=== PATIENT | female | born 1975 | race Caucasian/White ===

== ENCOUNTER 2017-02-27 23:58 | Emergency (ER) | payer BC ==
[~2017-02-27 23:58] MED LIST: ABILIFY5 PO; ALEVE220 MG PO; BENTYL10 PO; CLIN150 PO; EXCEDRINTB PO; FL250 PO; LAMICTAL10 PO; LAMICTAL200 MG PO; LAMICTAL25 PO; MULTIPLE VIT PO; MULTIVITAMI1 PO; NEXIUM40 PO; VALTREX1 GM PO; X25 PO; YAZ1 TAB PO; ZANTAC150 MG PO; ZOFRAN4 PO
[2017-02-28 03:55] LABS: BASOPHILS 0.2 %; BASOPHILS ABSOLUTE 0.02 10/3/uL (0.0-0.16); EOSINOPHILS 0.8 %; EOSINOPHILS ABSOLUTE 0.09 10/3/uL (0.0-0.53); HEMOGLOBIN 13.9 g/dL (12.0-16.0); IMMATURE GRANULOCYTES 0.2 %; IMMATURE GRANULOCYTES ABSOLUTE 0.02 10/3/uL (0.0-0.11); LYMPHOCYTES 13.6 %; LYMPHOCYTES ABSOLUTE 1.54 10/3/uL (0.67-4.30); MEAN CORPUS HGB CONC 34.8 g/dL (32.0-36.0); MEAN CORPUSCULAR HEMOGLOB 29.6 pg (26.0-34.0); MEAN PLATELET VOLUME 10.9 fL (9.2-13.0); MONOCYTES 7.2 %; MONOCYTES ABSOLUTE 0.81 10/3/uL (0.21-1.20); NEUTROPHILS ABSOLUTE 8.82 10/3/uL (2.02-8.40); PLATELET COUNT 255 10/3/uL (150-400); RBC DISTRIBUTION WIDTH 12.6 % (12.0-16.0)
[2017-02-28 03:56] LABS: HEMATOCRIT 39.9 % (36.0-48.0); MANUAL DIFF NO %; MEAN CORPUSCULAR VOLUME 84.9 fL (80-100); WHITE BLOOD CELLS 11.3 10/3/uL (4.5-10.5)
[2017-02-28 04:09] LABS: ASCORBIC ACID (UR NOT ORDER) 40 (NEG); BILIRUBIN, URINE NEGATIVE (NEG); ER URINALYSIS TAT 0 Hrs 00 Mins; KETONE, URINE TRACE MG/DL (NEG); LEUKOCYTE ESTERASE(NOT OR NEG (NEG); NITRITE (URINE) NEG (NEG); WBC (NOT ORDERED) (RFLEX) 1 (0-5)
[2017-02-28 04:13] LABS: CALCIUM, SERUM 8.7 MG/DL (8.5-10.4); CHLORIDE, SERUM 109 MMOL/L (96-112); CO2 (CARBON DIOXIDE) 25 MMOL/L (24-34); CREATININE 0.81 MG/DL (0.55-1.02); GFR AFRICAN AMERICAN 105 ML/MIN (>=60); GFR NON AFRICAN AMERICAN 91 ML/MIN (>=60); GLUCOSE, SERUM 107 MG/DL (60-99); SGPT(ALT) 180 U/L (5-65); SODIUM, SERUM 141 MMOL/L (135-148)
[2017-02-28 04:15] LABS: ALKALINE PHOSPHATASE 120 U/L (45-117); BUN (BLOOD UREA NITROGEN) 15 MG/DL (6-23); POTASSIUM, SERUM 4.5 MMOL/L (3.5-5.3); SGOT(AST) 320 U/L (5-40); TOTAL BILIRUBIN 1.1 MG/DL (0-1.2)
== END 2017-02-28 06:07 | disposition home or self-care (01) ==
LOC: ER 23:58
PROVIDERS: Emergency Medicine
DX: K85.90 Acute pancreatitis without necrosis or infection, unspecified (principal); Z88.5 Allergy status to narcotic agent; Z88.8 Allergy status to other drugs, medicaments and biological substances; Z79.899 Other long term (current) drug therapy
CPT/HCPCS: 74176; 80053; 81001; 83690; 84703; 85025; 96374; 99284; J2405

== ENCOUNTER 2017-03-05 19:41 | Emergency (ER) | payer BC ==
[2017-03-05 23:16] LABS: BASOPHILS 0.1 %; BASOPHILS ABSOLUTE 0.01 10/3/uL (0.0-0.16); EOSINOPHILS 1.2 %; EOSINOPHILS ABSOLUTE 0.09 10/3/uL (0.0-0.53); HEMATOCRIT 40.5 % (36.0-48.0); HEMOGLOBIN 14.1 g/dL (12.0-16.0); IMMATURE GRANULOCYTES 0.3 %; IMMATURE GRANULOCYTES ABSOLUTE 0.02 10/3/uL (0.0-0.11); LYMPHOCYTES ABSOLUTE 2.22 10/3/uL (0.67-4.30); MEAN CORPUS HGB CONC 34.8 g/dL (32.0-36.0); MEAN CORPUSCULAR HEMOGLOB 29.7 pg (26.0-34.0); MEAN CORPUSCULAR VOLUME 85.3 fL (80-100); MEAN PLATELET VOLUME 11.1 fL (9.2-13.0); MONOCYTES 7.7 %; MONOCYTES ABSOLUTE 0.57 10/3/uL (0.21-1.20); NEUTROPHILS 60.7 %; PLATELET COUNT 247 10/3/uL (150-400); RBC DISTRIBUTION WIDTH 12.6 % (12.0-16.0); RED CELL COUNT 4.75 10/6/uL (4.0-5.6); WHITE BLOOD CELLS 7.4 10/3/uL (4.5-10.5)
[2017-03-05 23:19] LABS: MANUAL DIFF NO %
[2017-03-05 23:34] LABS: ALBUMIN 3.9 G/DL (3.5-5.0); BUN (BLOOD UREA NITROGEN) 15 MG/DL (6-23); CALCIUM, SERUM 9.4 MG/DL (8.5-10.4); CHLORIDE, SERUM 104 MMOL/L (96-112); CO2 (CARBON DIOXIDE) 26 MMOL/L (24-34); CREATININE 0.86 MG/DL (0.55-1.02); GFR AFRICAN AMERICAN 98 ML/MIN (>=60); GFR NON AFRICAN AMERICAN 85 ML/MIN (>=60); GLOBULIN 4.1 G/DL (2.5-4.1); GLUCOSE, SERUM 91 MG/DL (60-99); SGPT(ALT) 185 U/L (5-65); SODIUM, SERUM 135 MMOL/L (135-148); TOTAL BILIRUBIN 0.9 MG/DL (0-1.2)
[2017-03-05 23:40] LABS: ALKALINE PHOSPHATASE 141 U/L (45-117); POTASSIUM, SERUM 5.5 MMOL/L (3.5-5.3); SGOT(AST) 67 U/L (5-40)
[2017-03-05 23:41] LABS: ASCORBIC ACID (UR NOT ORDER) 20 (NEG); BILIRUBIN, URINE NEGATIVE (NEG); ER URINALYSIS TAT 0 Hrs 00 Mins; KETONE, URINE 20 MG/DL (NEG); LEUKOCYTE ESTERASE(NOT OR SMALL (NEG); NITRITE (URINE) NEG (NEG); WBC (NOT ORDERED) (RFLEX) 3 (0-5)
[2017-03-06 00:44] LABS: POTASSIUM, SERUM 3.9 MMOL/L (3.5-5.3)
[2017-03-06 01:20] LABS: ALBUMIN 3.6 G/DL (3.5-5.0); DIRECT BILIRUBIN 0.2 MG/DL (0.0-0.4); INDIRECT BILIRUBIN(NOT ORDER) 0.5 MG/DL (0.1-0.9); TOTAL BILIRUBIN 0.7 MG/DL (0-1.2); TOTAL PROTEIN 6.9 G/DL (6.0-8.5)
== END 2017-03-06 03:27 | disposition home or self-care (01) ==
LOC: ER 19:41
PROVIDERS: Emergency Medicine; Nurse Practitioner
DX: K85.90 Acute pancreatitis without necrosis or infection, unspecified (principal); J45.909 Unspecified asthma, uncomplicated; E11.9 Type 2 diabetes mellitus without complications; Z88.5 Allergy status to narcotic agent; Z88.8 Allergy status to other drugs, medicaments and biological substances; Z79.899 Other long term (current) drug therapy
CPT/HCPCS: 74176; 80053; 80076; 81001; 83690; 84132; 84703; 85025; 87086; 96374; 99284; J2405

== ENCOUNTER 2017-03-18 14:55 | Inpatient (IN) | payer BC ==
--- NOTE | ~2017-03-18 | HP ---
History And Physical [place] [id number] [facility] [place]. [address] NAME: UMU GALLARDO : 79 STATUS : ADM IN PAT#: [id number] AGE: 42 ADM/REG DATE : 03/18/17 MR#: [id number] REPORT SERV DATE: 03/19/17 DICTATED BY: ATA GILLETTE DATE: 03/19/17 REPORT STATUS : Draft TRANSCRIBED BY: MODSoco DATE: 03/19/17 DATE OF ADMISSION: 03/18/2017 CHIEF COMPLAINT: Three weeks of decreased p.o. intake, difficulty with p.o. intake with abdominal pain, recent pancreatitis. HISTORY OF PRESENT ILLNESS: The patient is a 42-year-old female with past medical history of familial adenomatous polyposis with subsequent total colectomy who presents after having recent diagnosis of pancreatitis with a lipase in the 900s was treated supportively, however, since this diagnosis the patient has had decreased ability to advance diet. Has had three visits to the patient's PCP Dr. Cruz, and has even been evaluated at [place] with her GI doctor in which they even performed MRCP for pancreatitis symptoms about 1 week ago which the patient reports was unremarkable. Today, when she comes to her PCP Dr. Christiano Cruz, the patient was still unable to tolerate p.o., had been nauseated, mild vomiting, has been on enzyme replacement with minimal improvement, has had green liquid in ostomy. No fevers or chills. Pain on initial presentation was so severe that it woke her from sleep, in mid epigastric, has been on and off pain medication. The patient reports that only relieving symptoms was lying on the floor. Symptoms are intermittent, worsened with p.o. intake and also associated with mild vomiting nonradiating, no chest pain. No rashes, no headaches, no double vision. Additional 10-point review of systems negative except for that noted in the HPI. PAST MEDICAL HISTORY: Migraines, prediabetes, fatty liver, familial adenomatous polyposis, lumbar fusion with anterior approach. SURGICAL HISTORY: Total colectomy and lumbar spinal fusion with anterior approach, cholecystectomy. SOCIAL HISTORY: No smoking, alcohol, or illicits. 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 FAMILY HISTORY: Of stomach cancers in paternal aunts. Mother with diabetes and heart disease. ALLERGIES: DILAUDID, TORADOL, AND ACIPHEX. HOME MEDICATIONS: Enzymes, Zyrtec, and multivitamin. REVIEW OF SYSTEMS: Again review of systems, ten-point negative except for that noted in the HPI. LABS: Still currently pending. PHYSICAL EXAMINATION: VITAL SIGNS: Blood pressure 156/90, O2 sats 98%, temperature 97.8, pulse 80, weight 88.54 History And Physical [address] [address] NAME: UMU GALLARDO : 79 STATUS : ADM IN [facility]#: [id number] AGE: 42 ADM/REG DATE : 03/18/17 MR#: [id number] REPORT SERV DATE: 03/19/17 DICTATED BY: ATA GILLETTE DATE: 03/19/17 REPORT STATUS : Draft TRANSCRIBED BY: ARUN DATE: 03/19/17 kg. GENERAL: No acute distress. Resting, calm pleasant. HEAD: Normocephalic, atraumatic. EYES: No scleral icterus. EOMI. ENT: Nares patent. Tongue midline. Moist mucous membranes. CHEST: Equal chest expansion. RESPIRATORY: Clear to auscultation. No wheezes. CV: Regular rate. No rubs or gallops. ABDOMEN: Tender to palpation on left side with left-sided CVA tenderness, mild. Negative rebound. Right-sided ostomy. MUSCULOSKELETAL: Moves all extremities x4. No abdominal pain with leg raise. SKIN: Warm and dry. NEURO: Alert and oriented. Moves all extremities x4. Symmetrical strength in hands and legs bilaterally. PSYCH: Appropriate mood and affect. SKIN: Warm and dry. ASSESSMENT AND PLAN: 1. Nausea and vomiting with abdominal pain. 2. Recent pancreatitis. 3. Ostomy. 4. Prediabetes. 5. Familial adenomatous polyposis with colectomy. PLAN: 1. For abdominal pain, nausea, vomiting; supportive treatment. The patient has had multiple imaging with MRCP, however, looking at the patient's recent history of three weeks ago having pancreatitis, lipase at that time was going up to 900. This could be secondary to acute nausea vomiting and isolated irritation as the patient appeared to appears to have improved from that. Repeat lipase numbers approximately one week ago was within normal range but symptoms were still currently present at that time. Pancreatitis although is on differential, we will check lipase, CT with and without contrast. Of note, the patient does have mild left-sided CVA tenderness, that may be more consistent with stone formation. Additional differential could be symptomatic ulcer. We will first do initial screen for pancreatitis. Additional abdominal workup. Obtain records from [place] for MRCP [place], the patient has seen [facility]COSTA in the past, may require GI evaluation if current workup remains negative, but still unable to tolerate p.o. 2. For recent pancreatitis, initiated IV fluids until lipase and CT obtained and pain control. 3. Prediabetes, monitor. 4. Elevated LFTs with fatty liver history. Monitor CMP. Elevated LFTs are from patient's reports. She has history of fatty liver, was privately seeing Dr. Gregorio Cortez but has not been required to see. Again, we will monitoring specialist CMP. All questions answered with the patient and family at bedside. History And Physical [address] [address] NAME: UMU GALLARDO : 79 STATUS : ADM IN PAT#: [id number] AGE: 42 ADM/REG DATE : 03/18/17 MR#: [id number] REPORT SERV DATE: 03/19/17 DICTATED BY: ATA GILLETTE DATE: 03/19/17 REPORT STATUS : Draft TRANSCRIBED BY: ARUN DATE: 03/19/17 DDN/ARUN Ata Gillette MD / [id number] CC: Azam Hernandez Jr, MD William H Smith, M.D.
--- NOTE | ~2017-03-18 | CN ---
Consultation Report [facility] [address] [place]. [address] NAME: UMU GALLARDO : 79 STATUS : ADM IN PAT#: [id number] AGE: 42 ADM/REG DATE : 03/18/17 MR#: [id number] REPORT SERV DATE: 03/20/17 DICTATED BY: MEGA FUNEZ DATE: 03/20/17 REPORT STATUS : Draft TRANSCRIBED BY: ARUN DATE: 03/20/17 DATE OF CONSULTATION: 03/20/2017 REASON FOR CONSULTATION: Abdominal pain. HISTORY OF PRESENT ILLNESS: The patient is a 42-year-old female, who presents with approximately 3-week history of abdominal pain initially over the epigastrium, but now over the left upper quadrant. The pain is described as a knot. The pain tends to worsen with p.o. intake. She maintains liquids and she seems to do better, but still had discomfort. The pain began acutely three weeks ago and therefore underwent a CT scan at that time without contrast, that was unremarkable. She was noted to have mildly elevated lipase to 900s, so was given a presumptive diagnosis of pancreatitis at that point and was treated supportively; however, her symptoms have persisted. In the course of last three weeks, she has had three CT scans, MRI with MRCP, and an upper endoscopy, all of which have been unremarkable. She has a known history of FAP and has undergone a total colectomy. She follows up at [facility]. She had an upper endoscopy done four weeks ago by Dr. Fajardo at [facility] for routine surveillance. At which point, no ulcers or mucosal abnormalities other than adenomatous duodenal polyps were found. She also had an MRI with MRCP performed at that time, which was unremarkable. With the onset of pain after p.o. intake, she will have some mild nausea. She denies any fevers or chills. She denies any diarrhea. PAST MEDICAL HISTORY: Significant for FAP, status post total colectomy, history of migraines, fatty liver, pre-diabetes, back pain. PAST SURGICAL HISTORY: Total colectomy with ileostomy, lumbar spinal fusion, cholecystectomy. HOME MEDICATIONS: Reviewed. ALLERGIES: DILAUDID, TORADOL, ACIPHEX. FAMILY HISTORY: Paternal aunts with gastric cancers. REVIEW OF SYSTEMS: As in HPI, otherwise currently negative for fevers or myalgias. PHYSICAL EXAMINATION: VITAL SIGNS: Stable. Afebrile. GENERAL: Well-developed, well-nourished female, currently in no acute distress. HEENT: Atraumatic, normocephalic. Anicteric sclerae. NECK: Supple. No lymphadenopathy or JVD. CARDIOVASCULAR: Regular rate and rhythm. No murmurs, rubs, gallops. LUNGS: Clear to auscultation bilaterally. ABDOMEN: Soft. There is pinpoint tenderness to palpation in the left upper quadrant below the costal margin. Pain is present with and without abdominal wall flexion, but much worse Consultation Report [place] [id number] [place]. [address] NAME: UMU GALLARDO : 79 STATUS : ADM IN PAT#: [id number] AGE: 42 ADM/REG DATE : 03/18/17 MR#: [id number] REPORT SERV DATE: 03/20/17 DICTATED BY: MEGA FUNEZ DATE: 03/20/17 REPORT STATUS : Draft TRANSCRIBED BY: ARUN DATE: 03/20/17 with during flexion. Positive bowel sounds. EXTREMITIES: No cyanosis, clubbing, or edema. SKIN: Warm and dry. NEURO: Alert and oriented x3. LABORATORY WORK: Normal CBC. Normal CMP. Normal pancreatic enzymes. IMPRESSION/PLAN: Left upper quadrant pain. She has undergone extensive imaging as well as upper endoscopy within last four weeks that had all been unremarkable. Based on history, prior data, and today's exam, I feel this is musculoskeletal in nature. 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 This could be possibility as to what she may have had the abdominal injury. As such, we will treat with anti-inflammatories, muscle relaxers, warm, heat, and frequent abdominal stretching. SB/MODL Mega Funez M.D. / [id number] CC: MD Azam Camacho M.D.
--- NOTE | ~2017-03-18 | DS ---
Discharge Summary [place] [id number] [place]. [address] NAME: UMU GALLARDO : 79 STATUS : DIS IN PAT#: [id number] AGE: 42 ADM/REG DATE : 03/18/17 MR#: [id number] REPORT SERV DATE: 03/25/17 DICTATED BY: ATA GILLETTE DATE: 03/25/17 REPORT STATUS : Draft TRANSCRIBED BY: MODSoco DATE: 03/25/17 ADMISSION DATE: 03/18/2017 DISCHARGE DATE: 03/21/2017 DISCHARGE DIAGNOSES: 1. Abdominal pain, ruled out acute pancreatitis, thought musculoskeletal. 2. Urinary tract infection, present on arrival. 3. Extraperitoneal fluid on imaging. 4. Prediabetes. 5. Elevated LFTs with fatty liver history. CONSULTATIONS: Dr. Booth for GI and Dr. Bartlett, for [employer] [facility]. DISCHARGE DISPOSITION: Home with family. DISCHARGE MEDICATIONS: Flexeril 5 mg one tab p.o. t.i.d., Zyrtec 10 mg one tab p.o. daily, Creon 1200 p.o. q.i.d., multivitamin daily. HOSPITAL COURSE: Please see H and P for complete details. HISTORY OF PRESENT ILLNESS: Briefly, Ms. Gallardo is a 42-year-old, female, sent from Dr. Azam Cruz clinic who had recent pancreatitis, past medical history of familial adenomatous polyposis, followed by GI in [facility] [place] who reports the last few weeks, has had significant amount of abdominal pain, was diagnosed with pancreatitis, essentially left patient without ability to tolerate more than small liquids over the last few weeks. The patient had extensive workup done at outside facility. These records were not initially available to me so GI was consulted due to this pain. The patient was in clinic, was presumptive to have pancreatitis, and was treated with aggressive IV fluids. However, the patient did have normal pancreatic function test and additional etiology for central anorexia and pain with p.o. abdominal pain and discomfort was worked up including GI and Gynecologic issues. The patient was found to have UTI and was treated with Rocephin, completed while inpatient. The patient was evaluated by GI and has had scope and MRCP at outside facility [place]. Dr. Booth reviewed records and reported that extensive workup had been done, however, clinical presentation appears more consistent with traumatic musculoskeletal pain as the patient has 2 young children, one who has had frequent hospitalizations and likely from caring children caused trauma to left-sided cage. These were treated supportively with NSAIDs, Flexeril although initial treatment did not provide immediate relief within next morning the patient had some symptomatic relief and was on continued treatment for UTI. The patient was able to tolerate p.o. and felt best she has felt in a while. The patient for completion did have gynecologic evaluation due to incidental fluid finding on CT which was deemed by Gynecologic likely not acute and could be followed as an outpatient. No acute interventions were required, and could be normal ovarian as the patient does have IUD for history of PCOS, Mirena. The patient was able to have resolution of nausea, vomiting, and felt comfortable at time of discharge. All diagnostic procedures and consultation notes were discussed with the patient who is agreeable, who understands the plan and will continue to require close followup with PCP. Discharge Summary [address] [address] NAME: UMU GALLARDO : 79 STATUS : DIS IN PAT#: [id number] AGE: 42 ADM/REG DATE : 03/18/17 MR#: [id number] REPORT SERV DATE: 03/25/17 DICTATED BY: ATA GILLETTE DATE: 03/25/17 REPORT STATUS : Draft TRANSCRIBED BY: ARUN DATE: 03/25/17 UZIEL/ARUN Ata Gillette MD / [id number] CC: MD Azam Camacho M.D.
[2017-03-18 18:55] LABS: A/G RATIO 1.3 (0.7-1.9); ALKALINE PHOSPHATASE 106 U/L (45-117); BUN (BLOOD UREA NITROGEN) 8 MG/DL (6-23); CALCIUM, SERUM 9.2 MG/DL (8.5-10.4); CHLORIDE, SERUM 106 MMOL/L (96-112); CO2 (CARBON DIOXIDE) 30 MMOL/L (24-34); CREATININE 0.77 MG/DL (0.55-1.02); GFR AFRICAN AMERICAN 112 ML/MIN (>=60); GFR NON AFRICAN AMERICAN 97 ML/MIN (>=60); GLUCOSE, SERUM 69 MG/DL (60-99); PHOSPHORUS, SERUM 2.9 MG/DL (2.5-4.5); POTASSIUM, SERUM 3.3 MMOL/L (3.5-5.3); SGOT(AST) 20 U/L (5-40); SGPT(ALT) 48 U/L (5-65); SODIUM, SERUM 142 MMOL/L (135-148); TOTAL BILIRUBIN 0.6 MG/DL (0-1.2); TROPONIN I <0.02 NG/ML (<0.05); ULTRASENSITIVE TSH 0.849 MCIU/ML (0.358-3.740)
[2017-03-18 20:50] LABS: BASOPHILS 0.2 %; BASOPHILS ABSOLUTE 0.01 10/3/uL (0.0-0.16); EOSINOPHILS 2.1 %; HEMOGLOBIN 12.9 g/dL (12.0-16.0); IMMATURE GRANULOCYTES 0.2 %; IMMATURE GRANULOCYTES ABSOLUTE 0.01 10/3/uL (0.0-0.11); LYMPHOCYTES 41.8 %; LYMPHOCYTES ABSOLUTE 1.98 10/3/uL (0.67-4.30); MEAN CORPUS HGB CONC 34.5 g/dL (32.0-36.0); MEAN CORPUSCULAR HEMOGLOB 29.2 pg (26.0-34.0); MEAN CORPUSCULAR VOLUME 84.6 fL (80-100); MEAN PLATELET VOLUME 11.3 fL (9.2-13.0); MONOCYTES 5.9 %; MONOCYTES ABSOLUTE 0.28 10/3/uL (0.21-1.20); NEUTROPHILS 49.8 %; NEUTROPHILS ABSOLUTE 2.36 10/3/uL (2.02-8.40); PLATELET COUNT 180 10/3/uL (150-400); RBC DISTRIBUTION WIDTH 12.5 % (12.0-16.0); RED CELL COUNT 4.42 10/6/uL (4.0-5.6); WHITE BLOOD CELLS 4.7 10/3/uL (4.5-10.5)
[2017-03-18 20:51] LABS: HEMATOCRIT 37.4 % (36.0-48.0); MANUAL DIFF NO %
[2017-03-18 22:14] LABS: ASCORBIC ACID (UR NOT ORDER) NEG (NEG); BILIRUBIN, URINE NEGATIVE (NEG); KETONE, URINE 20 MG/DL (NEG); LEUKOCYTE ESTERASE(NOT OR MOD (NEG); WBC (NOT ORDERED) (RFLEX) 8 (0-5)
[2017-03-18] MEDS ORDERED: ZYRTEC ALLGY10 MG PO (22:21)
[2017-03-18] MEDS ORDERED: MULTIVITAMI1 PO (22:22)
[2017-03-18] MEDS ORDERED: CREON DR 3,0001 EACH PO (22:24)
[2017-03-19 04:38] LABS: TROPONIN I <0.02 NG/ML (<0.05)
[2017-03-19 05:45] LABS: BASOPHILS 0.3 %; BASOPHILS ABSOLUTE 0.01 10/3/uL (0.0-0.16); EOSINOPHILS 2.8 %; HEMATOCRIT 36.3 % (36.0-48.0); HEMOGLOBIN 12.5 g/dL (12.0-16.0); LYMPHOCYTES 43.2 %; LYMPHOCYTES ABSOLUTE 1.56 10/3/uL (0.67-4.30); MEAN CORPUS HGB CONC 34.4 g/dL (32.0-36.0); MEAN CORPUSCULAR HEMOGLOB 29.4 pg (26.0-34.0); MEAN CORPUSCULAR VOLUME 85.4 fL (80-100); MONOCYTES 8.6 %; MONOCYTES ABSOLUTE 0.31 10/3/uL (0.21-1.20); NEUTROPHILS 45.1 %; NEUTROPHILS ABSOLUTE 1.63 10/3/uL (2.02-8.40); PLATELET COUNT 156 10/3/uL (150-400); RBC DISTRIBUTION WIDTH 12.4 % (12.0-16.0); RED CELL COUNT 4.25 10/6/uL (4.0-5.6); WHITE BLOOD CELLS 3.6 10/3/uL (4.5-10.5)
[2017-03-19 05:45] LABS: BUN (BLOOD UREA NITROGEN) 6 MG/DL (6-23); CALCIUM, SERUM 8.5 MG/DL (8.5-10.4); CHLORIDE, SERUM 113 MMOL/L (96-112); CREATININE 0.62 MG/DL (0.55-1.02); GFR AFRICAN AMERICAN 131 ML/MIN (>=60); GFR NON AFRICAN AMERICAN 113 ML/MIN (>=60); GLUCOSE, SERUM 77 MG/DL (60-99); SGOT(AST) 15 U/L (5-40); SGPT(ALT) 36 U/L (5-65); SODIUM, SERUM 146 MMOL/L (135-148); TOTAL BILIRUBIN 0.5 MG/DL (0-1.2); TOTAL PROTEIN 5.7 G/DL (6.0-8.5)
[2017-03-19 05:47] LABS: MANUAL DIFF NO %
[2017-03-19 05:54] LABS: A/G RATIO 1.1 (0.7-1.9); ALKALINE PHOSPHATASE 89 U/L (45-117); CO2 (CARBON DIOXIDE) 24 MMOL/L (24-34); GLOBULIN 2.7 G/DL (2.5-4.1); POTASSIUM, SERUM 4.1 MMOL/L (3.5-5.3)
[2017-03-20 03:28] LABS: BASOPHILS 0.3 %; BASOPHILS ABSOLUTE 0.01 10/3/uL (0.0-0.16); EOSINOPHILS 3.3 %; EOSINOPHILS ABSOLUTE 0.13 10/3/uL (0.0-0.53); HEMATOCRIT 35.9 % (36.0-48.0); HEMOGLOBIN 12.3 g/dL (12.0-16.0); LYMPHOCYTES 43.8 %; LYMPHOCYTES ABSOLUTE 1.72 10/3/uL (0.67-4.30); MEAN CORPUS HGB CONC 34.3 g/dL (32.0-36.0); MEAN CORPUSCULAR HEMOGLOB 29.3 pg (26.0-34.0); MEAN CORPUSCULAR VOLUME 85.5 fL (80-100); MEAN PLATELET VOLUME 10.7 fL (9.2-13.0); MONOCYTES 6.4 %; MONOCYTES ABSOLUTE 0.25 10/3/uL (0.21-1.20); NEUTROPHILS 46.2 %; NEUTROPHILS ABSOLUTE 1.82 10/3/uL (2.02-8.40); PLATELET COUNT 168 10/3/uL (150-400); RBC DISTRIBUTION WIDTH 12.5 % (12.0-16.0); WHITE BLOOD CELLS 3.9 10/3/uL (4.5-10.5)
[2017-03-20 03:29] LABS: MANUAL DIFF NO %
[2017-03-20 03:41] LABS: BUN (BLOOD UREA NITROGEN) 3 MG/DL (6-23); CALCIUM, SERUM 8.1 MG/DL (8.5-10.4); CHLORIDE, SERUM 112 MMOL/L (96-112); CO2 (CARBON DIOXIDE) 25 MMOL/L (24-34); GFR AFRICAN AMERICAN 126 ML/MIN (>=60); GFR NON AFRICAN AMERICAN 108 ML/MIN (>=60); GLUCOSE, SERUM 87 MG/DL (60-99); POTASSIUM, SERUM 3.5 MMOL/L (3.5-5.3); SODIUM, SERUM 143 MMOL/L (135-148)
[2017-03-21] MEDS ORDERED: FLEXERIL5 MG PO (12:11)
[2017-03-21] MEDS ORDERED: NAP250 PO (12:12)
[2017-03-21] MEDS ORDERED: PROTONIX PO (12:16)
== END 2017-03-21 13:04 | disposition home or self-care (01) | DRG 563 ==
LOC: CDU1 14:55
PROVIDERS: Internal Medicine; Student in an Organized Health Care Education/Training Program
DX: S39.011A Strain of muscle, fascia and tendon of abdomen, initial encounter (principal); K76.0 Fatty (change of) liver, not elsewhere classified; N39.0 Urinary tract infection, site not specified; X58.XXXA Exposure to other specified factors, initial encounter; R73.03 Prediabetes; M54.9 Dorsalgia, unspecified; Z93.2 Ileostomy status; Z98.1 Arthrodesis status; Z90.49 Acquired absence of other specified parts of digestive tract; Z88.5 Allergy status to narcotic agent
CPT/HCPCS: 74176; 80048; 80053; 81001; 82140; 82150; 82962; 83605; 83690; 83735; 84100; 84145; 84443; 84484; 84703; 85025; 87086; 93005; A9270-GY; C9113